=== PATIENT | female | born 1945 | race Native Hawaiian/Other Pacific Islander ===

== ENCOUNTER 2016-09-14 16:31 | Inpatient (IN) | payer MEDICARE ==
--- NOTE | 2016-09-14 17:09 | C.PDOC ---
History Of Present Illness <Javier Arredondo - Last Filed: 09/14/16 18:50> <Jarred Dumont - Last Filed: 09/14/16 19:51> 71 y/o female with past medical history of hypertension presents to emergency department with complaint of syncopal episode. Patient states she fell backwards while cooking on Monday (3 days ago). Patient saw her PMD who sent her to ER for evaluation. Also reports left sided rib pain, sustained after fall , and henry to her right hand. Denies headache or other complaints. (Javier Arredondo) History Per: Patient History/Exam Limitations: no limitations Onset/Duration Of Symptoms: Days Current Symptoms Are (Timing): Still Present Fall Associated With With Symptoms: Yes Recent travel outside of the [place]: No <Javier Arredondo - Last Filed: 09/14/16 18:50> <Jarred Dumont - Last Filed: 09/14/16 19:51> Time Seen by Provider: 09/14/16 16:50 Chief Complaint (Nursing): Syncope Past Medical History Reviewed: Historical Data, Nursing Documentation, Vital Signs - Medical History PMH: HTN Family History: States: Unknown Family Hx - Social History Hx Alcohol Use: No Hx Substance Use: No <Javier Arredondo - Last Filed: 09/14/16 18:50> Review Of Systems Except As Marked, All Systems Reviewed And Found Negative. Constitutional: Negative for: Fever, Chills Cardiovascular: Negative for: Chest Pain, Palpitations Respiratory: Negative for: Cough, Shortness of Breath Gastrointestinal: Negative for: Nausea, Vomiting Musculoskeletal: Positive for: Other (left sided rib pain ) Skin: Positive for: Other (henry to right hand). Negative for: Rash Neurological: Negative for: Headache <Javier Arredondo - Last Filed: 09/14/16 18:50> Physical Exam - Physical Exam Appears: Non-toxic, No Acute Distress Skin: Normal Color, Warm, Dry Head: Atraumatic, Normacephalic Eye(s): bilateral: Normal Inspection Neck: No Midline Cervical Tenderness, No Paracervical Tenderness, No Step Off Deformity, Supple Chest: Symmetrical, Tenderness (left sided lower costal pain) Cardiovascular: Rhythm Regular Respiratory: Normal Breath Sounds, No Rales, No Rhonchi, No Wheezing Gastrointestinal/Abdominal: Soft, No Tenderness Back: Normal Inspection Extremity: Normal ROM, Capillary Refill (< 2 sec. ), Other (1st degree henry to right hand) Neurological/Psych: Oriented x3, Normal Speech, Normal Cognition <Javier Arredondo - Last Filed: 09/14/16 18:50> ED Course And Treatment - Laboratory Results Result Diagrams: 09/14/16 17:26 09/14/16 17:26 O2 Sat by Pulse Oximetry: 94 (RA) Pulse Ox Interpretation: Normal Progress Note: CT Head, CT chest, right hand x-rays, EKG, CxR, labs ordered and reviewed. <Javier Arredondo - Last Filed: 09/14/16 18:50> - Laboratory Results Result Diagrams: 09/14/16 17:26 09/14/16 17:26 ECG: Interpreted By Me, Viewed By Me ECG Rhythm: Sinus Rhythm ECG Interpretation: Normal, No Acute Changes Interpretation Of ECG: NSR,normal tracings Rate From EC Reassessment Condition: Unchanged <Jarred Dumont R - Last Filed: 09/14/16 19:51> Medical Decision Making <Javier Arredondo - Last Filed: 09/14/16 18:50> <Jarred Dumont - Last Filed: 09/14/16 19:51> Medical Decision Making: syncope r/o cardiac intracranial vs seizure etiology, also r/o left rib fx. - labs imaging pending- ekg nsr [address] t wave changes. 609: inital cxr shows possible atelectasis vs effusion, changed ct to IV contrast to r/o hemothorax/rib fx. FAST neg. pt empircally covered for pna 700: endorsed to date night sitter, pending results of imaging, final dispo (Javier Arredondo) Disposition <Javier Arredondo - Last Filed: 09/14/16 18:50> Discussed With : Yahaira Crowell Doctor Will See Patient In The: Hospital Counseled Patient/Family Regarding: Diagnosis - Disposition Disposition Time: 19:43 - POA Present On Arrival: None <Jarred Dumont R - Last Filed: 09/14/16 19:51> - Disposition Disposition: HOSPITALIZED Condition: STABLE - Clinical Impression Clinical Impression: Syncope, Chest injury, Hemothorax, Pneumothorax, Endometrial ca - Scribe Statement The provider has reviewed the documentation as recorded by the Scribe <Javier Arredondo - Last Filed: 09/14/16 18:50> <Jarred Dumont - Last Filed: 09/14/16 19:51> - Scribe Statement Simon Prater All medical record entries made by the Scribe were at my direction and personally dictated by me. I have reviewed the chart and agree that the record accurately reflects my personal performance of the history, physical exam, medical decision making, and the department course for this patient. I have also personally directed, reviewed, and agree with the discharge instructions and disposition. (Javier Arredondo)
--- NOTE | 2016-09-14 17:27 | RAD ---
PROCEDURE: CHEST RADIOGRAPH, 1 VIEW HISTORY: chest pain COMPARISON: No prior study available for comparison FINDINGS: LUNGS: Patchy opacity left lung base may represent some combination of atelectasis and/or infiltrate. Minor right basilar atelectasis. PLEURA: No pneumothorax or pleural fluid seen. CARDIOVASCULAR: Heart size appears to be within range of normal. OSSEOUS STRUCTURES: Mild dextroscoliosis of thoracic mid thoracic spine. VISUALIZED UPPER ABDOMEN: Normal. OTHER FINDINGS: None. IMPRESSION: Left lower lobe atelectasis and or infiltrate Minor right basilar atelectasis.
[2016-09-14 17:32] LABS: BASO # 0.1 K/uL (0.0-0.2); BASO % 0.8 % (0.0-2.0); EOS % 0.3 % (0.0-4.0); HEMATOCRIT 36.9 % (34.0-47.0); LYMPH # 2.4 K/uL (1.0-4.3); MEAN CELL VOLUME 80.8 fL (81.0-99.0); MEAN CORPUSCULAR HEMOGLOBIN 25.4 pg (27.0-31.0); MEAN CORPUSCULAR HGB CONC 31.5 g/dL (33.0-37.0); MEAN PLATELET VOLUME 8.1 fL (7.2-11.7); MONO # 1.4 K/uL (0.0-0.8); MONO % 9.9 % (0.0-10.0); RED CELL DISTRIBUTION WIDTH 16.6 % (11.5-14.5); WHITE BLOOD COUNT 14.2 K/uL (4.8-10.8)
[2016-09-14 17:53] LABS: CHLORIDE 100 mmol/L (98-107)
[2016-09-14 17:54] LABS: POTASSIUM 3.8 mmol/L (3.6-5.2); SODIUM 136 mmol/L (132-148)
[2016-09-14 17:56] LABS: ALB/GLOB RATIO 1.1 (1.0-2.1); AST/SGOT 17 U/L (14-36); BILIRUBIN,TOTAL 0.7 mg/dL (0.2-1.3); CARBON DIOXIDE 26 mmol/L (22-30); GFR AFRICAN-AMERICAN > 60; TOTAL PROTEIN 7.3 g/dL (6.3-8.3)
[2016-09-14 17:57] LABS: ALKALINE PHOSPHATASE 74 U/L (38-126); ALT/SGPT 19 U/L (9-52); BLOOD UREA NITROGEN 19 mg/dL (7-17); CALCIUM 8.5 mg/dl (8.6-10.4); GLUCOSE,RANDOM 115 mg/dL (65-105)
[2016-09-14] MEDS ORDERED: Iohexol 300 100 ML IJ ONE (18:08)
--- NOTE | 2016-09-14 18:15 | RAD ---
PROCEDURE: Right Hand Radiographs. HISTORY: trauma COMPARISON: None available. FINDINGS: BONES: No acute displaced fracture. JOINTS: No dislocation. SOFT TISSUES: Unremarkable. No evidence of radiopaque foreign body. OTHER FINDINGS: None. IMPRESSION: No acute displaced fracture, dislocation, or significant joint effusion identified. If symptoms persist, or if there is continued clinical concern, x-ray follow-up in 7-10 days should be considered.
[2016-09-14 18:20] LABS: INR 1.2
[2016-09-14] MEDS ORDERED: Moxifloxacin IV 400mg/250ml NS 400 MG/250 ML BAG IVPB ONE ×2 (18:41→19:22)
[2016-09-14 19:18] LABS: RBC URINE 6 /hpf (0-3); URINE BACTERIA RARE (<OCC); URINE BILIRUBIN NEGATIVE (NEGATIVE); URINE BLOOD NEGATIVE (NEGATIVE); URINE COLOR Yellow (YELLOW); URINE GLUCOSE (UA) NORMAL (Normal); URINE KETONE NEGATIVE (NEGATIVE); URINE LEUKOCYTE ESTERASE 2+ Leu/uL (Negative); URINE PROTEIN NEGATIVE (NEGATIVE); URINE UROBILINOGEN NORMAL mg/dL (0.2-1.0); WBC URINE 10 /hpf (0-5)
--- NOTE | 2016-09-14 19:28 | CT ---
EXAM: CT Chest With Intravenous Contrast CLINICAL HISTORY: 71 years old, female; Pain and injury or trauma; Fall; Initial encounter; Abrasion; Abdominal pain; Epigastric; Chest wall pain; Additional info: Trauma, left sided rib pain TECHNIQUE: Axial computed tomography images of the chest with intravenous contrast. This CT exam was performed using one or more of the following dose reduction techniques: automated exposure control, adjustment of the mA and/or kV according to patient size, and/or use of iterative reconstruction technique. Coronal and sagittal reformatted images were created and reviewed. CONTRAST: 100 mL of omnipaque 300 administered intravenously. COMPARISON: There are no prior studies for comparison. FINDINGS: Artifacts: Motion artifact degrades image quality. Lungs and pleural spaces: Trachea and main bronchi are patent. There a small left pneumothorax with air in the pleural space at the left base. There is a small left pleural effusion. CT number is 35 Hounsfield units There is left lower lobe airspace disease. There is minimal airspace disease in the lingula. There is subsegmental atelectasis/scarring in the left upper lobe. There is no focal infiltrate is seen in the right upper lobe. There is atelectasis and scarring in the right middle lobe. There is subsegmental atelectasis and patchy airspace disease at the right base. There is scarring at the right base. Heart and Vasculature: Heart size is normal. There are coronary calcifications.There is no aneurysm or dissection.There are vascular calcifications.Pulmonary vessels are unremarkable Mediastinum: There is a moderately large hiatal hernia.There is no pneumomediastinum. The esophagus is unremarkable. There are no pathologically enlarged mediastinal or hilar nodes. Thyroid: There is a left thyroid nodule. Bones/joints: There are nondisplaced fractures of the anterior left third, fourth, fifth and sixth ribs. There is a nondisplaced fracture of the lateral left sixth and seventh ribs. There are displaced fractures lateral aspects of these left sixth, seventh, eighth, ninth and 10th ribs. There are posterior left eighth and ninth rib fractures. No definite fractures are seen on right. There are degenerative changes in the spine. Soft tissues: There is bruising in the left chest wall . Upper abdomen: Refer to abdominal report for abdominal findings IMPRESSION: Multiple left rib fractures with left hemopneumothorax; atelectasis/infiltrate at the left base; scarring at the right base; bruising in the left chest wall; moderately large hiatal hernia Findings were discussed with Dr. Dumont at 7:23 PM EDT on 09/14/2016. EXAM: CT Abdomen and Pelvis With Intravenous Contrast CLINICAL HISTORY: 71 years old, female; Pain and injury or trauma; Fall; Initial encounter; Abrasion; Abdominal pain; Epigastric; Chest wall pain; Additional info: Trauma, left sided rib pain TECHNIQUE: Axial computed tomography images of the abdomen and pelvis with intravenous contrast. This CT exam was performed using one or more of the following dose reduction techniques: automated exposure control, adjustment of the mA and/or kV according to patient size, and/or use of iterative reconstruction technique. Coronal and sagittal reformatted images were created and reviewed. CONTRAST: 100 mL of omnipaque 300 administered intravenously. EXAM DATE/TIME: 09/14/2016 6:01 PM COMPARISON: There are no prior studies for comparison. FINDINGS: Lower thorax: Refer to prior report for chest findings ABDOMEN: Liver: There is fatty infiltration of the liver. Gallbladder and bile ducts: Gallbladder is distended. Bile duct is unremarkable. Pancreas: Pancreas is mildly atrophic. Spleen: Spleen is unremarkable. Adrenals: unremarkable Kidneys and ureters: unremarkable Stomach and bowel: There is a moderately large ventral hernia. Stomach is incompletely distended. Rotation is normal. There is mild distention of the small bowel. There is no small bowel obstruction. Terminal ileum is unremarkable. Appendix is unremarkable. Streak and motion limit evaluation of the colon. There is moderate stool in the colon. There is scattered diverticulosis. There may be a small polypoid lesion in the sigmoid, image 40 series 604, images 102-107, series 6 There is a fecal bolus in the rectum. Appendix: See stomach and bowel PELVIS: Bladder: Bladder is partially distended. Reproductive: Uterus is prominent for the patient's age. There is endometrial thickening and enhancement. There is prominence of the adnexa. There is a 2.5 cm left adnexal cyst. ABDOMEN and PELVIS: Intraperitoneal space: There is no free air or free fluid. Bones/joints: Bony structures are osteopenic. There are no pelvic fractures.There are degenerative changes in the osseus structures. There are lower left rib fractures as described above. Soft tissues: unremarkable Vasculature: There are vascular calcifications. Lymph nodes: There is no pathologic adenopathy. IMPRESSION: No acute solid visceral or bowel injury; thickened endometrium with enhancement suspicious for malignancy; mildly prominent left adnexa; possible sigmoid colonpolyp; constipation and fecal impaction Additional findings as described above. Findings were discussed with Dr. Dumont at 7:27 PM EDT on 09/14/2016.
--- NOTE | 2016-09-14 19:30 | CT ---
EXAM: CT Head Without and With Intravenous Contrast CLINICAL HISTORY: 71 years old, female; Injury or trauma and signs and symptoms; Fall; Initial encounter; Abrasion; Forehead; Syncope and collapse and walking, difficulty TECHNIQUE: Axial computed tomography images of the head/brain without and with intravenous contrast. This CT exam was performed using one or more of the following dose reduction techniques: automated exposure control, adjustment of the mA and/or kV according to patient size, and/or use of iterative reconstruction technique. CONTRAST: 0 mL of omnipaque 300 administered intravenously. EXAM DATE/TIME: 09/14/2016 5:03 PM COMPARISON: There are no prior studies for comparison. FINDINGS: Brain: There is dilatation of sulci gyri and ventricles. There is no midline shift. There is decreased attenuation in periventricular white matter. There is encephalomalacia in both temporal lobes right greater than left. There are no focal masses. There are no focal hemorrhages. [place]-white differentiation is visualized. Ventricles: See above Bones: Cranial vault is intact. Soft tissues: unremarkable Sinuses: There is no acute sinusitis. Ears and mastoids: Middle ears and mastoids are unremarkable. There is debris in both external auditory canals. Orbits: Orbital contents are unremarkable. IMPRESSION: Atrophy and small vessel disease; bilateral temporal lobe encephalomalacia, new bleed
[2016-09-15] MEDS: Piperacill/Tazo 3.375gm in Dex 3.375 GM/50 ML BAG IVPB SCH (02:00)
[2016-09-15] MEDS ORDERED: Morphine 4 MG/ML VIAL ONE (10:09)
[2016-09-15] MEDS ORDERED: Morphine 4 MG/ML VIAL IV PRN ×2 (19:37→19:45)
--- NOTE | 2016-09-15 20:38 | CP.PCM.CON ---
History of Present Illness - History of Present Illness History of Present Illness: Pt is a 71 yo f ho Htn who presented secondary to syncope that resulting in multiple henry on hands and rib fractures. Pt reports 8-10/10, left sided pain that radiates to the back. Pain is aggraveted by movement and minimal responsive to current treatment. No associated symptoms. CT chest showed both nondisplaced and displaced rib fractures from rib 3-10. Pt denies any n/v/cp/sob. Recommendation: 1. Dilaudid SCRAP YARD WORKER to control pain + antiemetic for possible n/v 2. Acetaminophen 650mg PO q6H for inflammation 3. Consider thoracic epidural or paravertebral block for pain control if not alleviated with SCRAP YARD WORKER 4. Consider lidocaine patch for adjunct analgesia is patient is not a candidate for epidural or block Will continue to follow. Thank you for your consult. Past Patient History - Past Social History Smoking Status: Never Smoked - CARDIAC Hx Hypertension: Yes - PULMONARY Hx Respiratory Disorders: No - NEUROLOGICAL Hx Neurological Disorder: No - HEENT Hx HEENT Problems: No - RENAL Hx Chronic Kidney Disease: No - ENDOCRINE/METABOLIC Hx Endocrine Disorders: No - HEMATOLOGICAL/ONCOLOGICAL Hx Blood Disorders: No - MUSCULOSKELETAL/RHEUMATOLOGICAL Hx Musculoskeletal Disorders: No Hx Falls: No - GASTROINTESTINAL Hx Gastrointestinal Disorders: No - GENITOURINARY/GYNECOLOGICAL Hx Genitourinary Disorders: No - PSYCHIATRIC Hx Substance Use: No - SURGICAL HISTORY Hx Surgeries: No - ANESTHESIA Hx Anesthesia: No Hx Anesthesia Reactions: No Hx Malignant Hyperthermia: No Has any member of the family had a problem w/ anesthesia?: No Meds Allergies/Adverse Reactions: Allergies Allergy/AdvReac Type Severity Reaction Status Date / Time No Known Allergies Allergy Verified 09/14/16 18:38 - Medications Medications: Current Medications Amlodipine Besylate (Norvasc) 10 mg PO DAILY [facility] Piperacillin Sod/Tazobactam Sod (Zosyn 3.375 Gm Iv Premix) 3.375 gm in 50 mls @ 100 mls/hr IVPB Q8H [facility] Levetiracetam (Keppra) 500 mg PO BID [facility] Morphine Sulfate (Morphine) 4 mg IV Q4H PRN PRN Reason: Pain, moderate (4-7) Morphine Sulfate (Morphine) 4 mg IV Q4H PRN PRN Reason: Pain, severe (8-10) Pantoprazole Sodium (Protonix Ec Tab) 40 mg PO DAILY [facility] Rosuvastatin Calcium (Crestor) 10 mg PO HS [facility] Silver Sulfadiazine (Silvadene 1% 20 Gm) 1 ea TOP BID [facility] Results - Vital Signs Recent Vital Signs: Last Vital Signs Temp 99.0 F 09/15/16 15:42 Pulse 89 09/15/16 15:42 Resp 20 09/15/16 15:42 BP 104/63 09/15/16 15:42 Pulse Ox 97 09/15/16 15:42 - Labs Result Diagrams: 09/14/16 17:26 09/14/16 17:26
--- NOTE | 2016-09-15 22:33 | CP.PCM.HP ---
History of Present Illness - History of Present Illness History of Present Illness: 71-year-old female patient with a past medical history of hypertension who presented to the ED with complaint of syncopal episode. Patient states she fell backward while cooking on Monday(3 days ago). Patient saw her PMD who sent her to ER for evaluation. Patient also reports left-sided hip pain, sustained after a fall, and wants to the right hand. Denies headache or any other complaints. Present on Admission - Present on Admission Any Indicators Present on Admission: No Past Patient History - Past Social History Smoking Status: Never Smoked - CARDIAC Hx Hypertension: Yes - PULMONARY Hx Respiratory Disorders: No - NEUROLOGICAL Hx Neurological Disorder: No - HEENT Hx HEENT Problems: No - RENAL Hx Chronic Kidney Disease: No - ENDOCRINE/METABOLIC Hx Endocrine Disorders: No - HEMATOLOGICAL/ONCOLOGICAL Hx Blood Disorders: No - MUSCULOSKELETAL/RHEUMATOLOGICAL Hx Musculoskeletal Disorders: No Hx Falls: No - GASTROINTESTINAL Hx Gastrointestinal Disorders: No - GENITOURINARY/GYNECOLOGICAL Hx Genitourinary Disorders: No - PSYCHIATRIC Hx Substance Use: No - SURGICAL HISTORY Hx Surgeries: No - ANESTHESIA Hx Anesthesia: No Hx Anesthesia Reactions: No Hx Malignant Hyperthermia: No Has any member of the family had a problem w/ anesthesia?: No Meds Home Medications: Home Medication List Medication Instructions Recorded Confirmed Type Acetaminophen [Tylenol 325mg tab] 650 mg PO Q6 tab 09/19/16 Rx Cephalexin [Keflex] 250 mg PO QID 7 Days 09/19/16 Rx Gabapentin [Neurontin] 100 mg PO BID #30 cap 09/19/16 Rx Rosuvastatin Calcium [Crestor] 10 mg PO HS #30 tab 09/19/16 Rx Silver Sulfadiazine 1% 20 gm 1 ea TOP BID #1 09/19/16 Rx [Silvadene 1% 20 gm] Sulfamethoxazole/Trimethoprim 1 tab PO BID #14 tab 09/19/16 Rx [Bactrim DS 800 mg-160 mg] amLODIPine [Norvasc] 10 mg PO DAILY #30 tab 09/19/16 Rx levETIRAcetam [Keppra] 500 mg PO BID #30 tab 09/19/16 Rx oxyCODONE/Acetaminophen [Percocet 1 tab PO Q4H PRN #12 tab 09/19/16 Rx 5/325 mg Tab] Allergies/Adverse Reactions: Allergies Allergy/AdvReac Type Severity Reaction Status Date / Time No Known Allergies Allergy Verified 09/14/16 18:38 Physical Exam - Constitutional Appears: Well - Head Exam Head Exam: ATRAUMATIC, NORMAL INSPECTION, NORMOCEPHALIC - Eye Exam Eye Exam: EOMI, Normal appearance, PERRL Pupil Exam: NORMAL ACCOMODATION, PERRL - ENT Exam ENT Exam: Mucous Membranes Moist, Normal Exam - Neck Exam Neck exam: Positive for: Normal Inspection - Respiratory Exam Respiratory Exam: Decreased Breath Sounds - Cardiovascular Exam Cardiovascular Exam: REGULAR RHYTHM, +S1, +S2 - GI/Abdominal Exam GI & Abdominal Exam: Diminished Bowel Sounds, Soft - Rectal Exam Rectal Exam: Deferred Results - Vital Signs Recent Vital Signs: Last Vital Signs Temp 99.0 F 09/15/16 15:42 Pulse 89 09/15/16 15:42 Resp 20 09/15/16 15:42 BP 104/63 09/15/16 15:42 Pulse Ox 97 09/15/16 15:42 - Labs Result Diagrams: 09/16/16 07:05 09/16/16 07:05 Assessment & Plan (1) Chest injury Status: Acute (2) Endometrial ca Status: Acute (3) Hemothorax Status: Acute (4) Pneumothorax Status: Acute (5) Syncope Status: Acute - Assessment and Plan (Free Text) Plan: Consult neurology Consult pulmonology Consult orthopedic Consult MANAGER PROGRAM MANAGEMENT ECG normal Tylenol Norvasc Heparin Dilaudid Keppra Protonix
[2016-09-16] MEDS: Piperacill/Tazo 3.375gm in Dex 3.375 GM/50 ML BAG IVPB SCH ×3 (02:03→18:40)
[2016-09-16 07:29] LABS: BASO # 0.1 K/uL (0.0-0.2); BASO % 1.2 % (0.0-2.0); EOS # 0.3 K/uL (0.0-0.7); EOS % 2.5 % (0.0-4.0); HEMATOCRIT 33.9 % (34.0-47.0); LYMPH # 3.3 K/uL (1.0-4.3); LYMPH % 27.1 % (20.0-40.0); MEAN CELL VOLUME 80.3 fL (81.0-99.0); MEAN CORPUSCULAR HGB CONC 32.4 g/dL (33.0-37.0); MEAN PLATELET VOLUME 8.3 fL (7.2-11.7); MONO # 1.4 K/uL (0.0-0.8); MONO % 11.4 % (0.0-10.0); RED CELL DISTRIBUTION WIDTH 16.4 % (11.5-14.5); WHITE BLOOD COUNT 12.3 K/uL (4.8-10.8)
[2016-09-16 07:57] LABS: CHLORIDE 99 mmol/L (98-107); SODIUM 135 mmol/L (132-148)
[2016-09-16 07:58] LABS: POTASSIUM 3.7 mmol/L (3.6-5.2)
[2016-09-16 08:00] LABS: ALKALINE PHOSPHATASE 63 U/L (38-126); ALT/SGPT 15 U/L (9-52); AST/SGOT 15 U/L (14-36); BILIRUBIN,TOTAL 0.8 mg/dL (0.2-1.3); BLOOD UREA NITROGEN 10 mg/dL (7-17); CARBON DIOXIDE 28 mmol/L (22-30); GFR AFRICAN-AMERICAN > 60; GLUCOSE,RANDOM 97 mg/dL (65-105); TOTAL PROTEIN 6.5 g/dL (6.3-8.3)
[2016-09-16 08:01] LABS: CALCIUM 8.1 mg/dl (8.6-10.4)
[2016-09-16] MEDS: Pantoprazole 40 mg EC Tab PO SCH (09:19)
--- NOTE | 2016-09-16 09:42 | RAD ---
HISTORY: multiple rib fractures, hemopneumothorax compare COMPARISON: 09/14/2016 FINDINGS: LUNGS: No definite consolidation. PLEURA: Left pleural effusion with hazy opacity throughout the left hemithorax likely due to dependent pleural fluid. Alternatively, this could represent diffuse pulmonary infiltrate. No right-sided pleural effusion. No pneumothorax. CARDIOVASCULAR: Normal. OSSEOUS STRUCTURES: No significant abnormalities. VISUALIZED UPPER ABDOMEN: Normal. OTHER FINDINGS: None. IMPRESSION: Left pleural effusion. Cannot rule out diffuse left-sided pulmonary infiltrate. Followup advised.
--- NOTE | 2016-09-16 10:57 | CP.PCM.PN ---
Subjective - Date & Time of Evaluation Date of Evaluation: 09/16/16 Time of Evaluation: 11:03 - Subjective Subjective: Surgery: Dr. Haque Pt seen and examined. Has complaints of L side chest pain. No SOB. Also has pain at fingers where henry occurred. Objective - Vital Signs/Intake and Output Vital Signs (last 24 hours): Temp Pulse Resp BP Pulse Ox 98.1 F 66 18 99/56 L 97 09/16/16 07:20 09/16/16 07:20 09/16/16 07:20 09/16/16 07:20 09/16/16 07:20 - Medications Medications: Current Medications Acetaminophen (Tylenol 325mg Tab) 650 mg PO Q6 [facility] Stop: 09/17/16 00:01 Last Admin: 09/16/16 06:10 Dose: 650 mg Amlodipine Besylate (Norvasc) 10 mg PO DAILY [facility] Last Admin: 09/16/16 09:19 Dose: 10 mg Heparin Sodium (Porcine) (Heparin) 5,000 units SC Q12 [facility] Hydromorphone/Sodium Chloride (Dilaudid Guitar Repair Technician) 6 mg IV Q4H PRN; Protocol PRN Reason: Pain, see mash preparatory operator protocol Last Admin: 09/15/16 23:16 Dose: 6 mg Piperacillin Sod/Tazobactam Sod (Zosyn 3.375 Gm Iv Premix) 3.375 gm in 50 mls @ 100 mls/hr IVPB Q8H [facility] Last Admin: 09/16/16 09:18 Dose: 100 mls/hr Levetiracetam (Keppra) 500 mg PO BID [facility] Last Admin: 09/16/16 09:19 Dose: 500 mg Pantoprazole Sodium (Protonix Ec Tab) 40 mg PO DAILY [facility] Last Admin: 09/16/16 09:19 Dose: 40 mg Rosuvastatin Calcium (Crestor) 10 mg PO HS [facility] Last Admin: 09/15/16 22:19 Dose: 10 mg Silver Sulfadiazine (Silvadene 1% 20 Gm) 1 ea TOP BID [facility] - Labs Labs: 09/16/16 07:05 09/16/16 07:05 PT 13.9 SECONDS (9.7-12.2) H 09/14/16 17:26 INR 1.2 09/14/16 17:26 APTT 27 SECONDS (21-34) 09/14/16 17:26 - Constitutional Appears: Non-toxic, No Acute Distress - Head Exam Head Exam: ATRAUMATIC, NORMOCEPHALIC - Eye Exam Eye Exam: EOMI - ENT Exam ENT Exam: Mucous Membranes Moist - Neck Exam Neck Exam: Full ROM - Respiratory Exam Respiratory Exam: NORMAL BREATHING PATTERN. absent: Accessory Muscle Use, Respiratory Distress - GI/Abdominal Exam GI & Abdominal Exam: Soft. absent: Tenderness - Extremities Exam Extremities Exam: absent: Calf Tenderness, Pedal Edema Additional comments: first and second degree henry to b/l hands and fingers - Neurological Exam Neurological Exam: Alert, Awake, Oriented x3 Assessment and Plan - Assessment and Plan (Free Text) Assessment: 71F w. multiple L side rib Fxs and 1st/2nd degree burn B/L hands -Pain control w. PLANT EQUIPMENT ENGINEER -encourage IS use -AM CXR: possible infiltrate L lung -Repeat CXR tomrrow -Recommend hand surgery consult for henry to hand -d/w attending Saadmaitis PGY2
[2016-09-16] MEDS: Silver Sulfadiazine 1% Cream (20 gm) TOP SCH ×2 (12:39→17:52)
--- NOTE | 2016-09-16 13:48 | CP.PCM.CON ---
History of Present Illness - History of Present Illness History of Present Illness: Reason for consultation: Fall, rib fxs,left, hemopneumothorax, Requested by Pt s/e. progress notes, and imaging studies reviewed. Mutiple ribs fx left, small pneumothorax, bailar hemothorax and atelectasis. Recom: Pain rx, incentive spirometer, and Pt. d/w residents on rounds. Past Patient History - Past Social History Smoking Status: Never Smoked - CARDIAC Hx Hypertension: Yes - PULMONARY Hx Respiratory Disorders: No - NEUROLOGICAL Hx Neurological Disorder: No - HEENT Hx HEENT Problems: No - RENAL Hx Chronic Kidney Disease: No - ENDOCRINE/METABOLIC Hx Endocrine Disorders: No - HEMATOLOGICAL/ONCOLOGICAL Hx Blood Disorders: No - MUSCULOSKELETAL/RHEUMATOLOGICAL Hx Musculoskeletal Disorders: No Hx Falls: No - GASTROINTESTINAL Hx Gastrointestinal Disorders: No - GENITOURINARY/GYNECOLOGICAL Hx Genitourinary Disorders: No - PSYCHIATRIC Hx Substance Use: No - SURGICAL HISTORY Hx Surgeries: No - ANESTHESIA Hx Anesthesia: No Hx Anesthesia Reactions: No Hx Malignant Hyperthermia: No Has any member of the family had a problem w/ anesthesia?: No Meds Allergies/Adverse Reactions: Allergies Allergy/AdvReac Type Severity Reaction Status Date / Time No Known Allergies Allergy Verified 09/14/16 18:38 - Medications Medications: Current Medications Acetaminophen (Tylenol 325mg Tab) 650 mg PO Q6 [facility] Stop: 09/17/16 00:01 Last Admin: 09/16/16 12:38 Dose: 650 mg Amlodipine Besylate (Norvasc) 10 mg PO DAILY [facility] Last Admin: 09/16/16 09:19 Dose: 10 mg Heparin Sodium (Porcine) (Heparin) 5,000 units SC Q12 [facility] Hydromorphone/Sodium Chloride (Dilaudid Gunite Mixer) 6 mg IV Q4H PRN; Protocol PRN Reason: Pain, see etcher machine protocol Last Admin: 09/15/16 23:16 Dose: 6 mg Piperacillin Sod/Tazobactam Sod (Zosyn 3.375 Gm Iv Premix) 3.375 gm in 50 mls @ 100 mls/hr IVPB Q8H [facility] Last Admin: 09/16/16 09:18 Dose: 100 mls/hr Levetiracetam (Keppra) 500 mg PO BID [facility] Last Admin: 09/16/16 09:19 Dose: 500 mg Pantoprazole Sodium (Protonix Ec Tab) 40 mg PO DAILY [facility] Last Admin: 09/16/16 09:19 Dose: 40 mg Rosuvastatin Calcium (Crestor) 10 mg PO HS [facility] Last Admin: 09/15/16 22:19 Dose: 10 mg Silver Sulfadiazine (Silvadene 1% 20 Gm) 1 ea TOP BID [facility] Last Admin: 09/16/16 12:39 Dose: Not Given Results - Vital Signs Recent Vital Signs: Last Vital Signs Temp 98.1 F 09/16/16 07:20 Pulse 66 09/16/16 07:20 Resp 18 09/16/16 07:20 BP 99/56 L 09/16/16 07:20 Pulse Ox 97 09/16/16 07:20 - Labs Result Diagrams: 09/16/16 07:05 09/16/16 07:05 Labs: Laboratory Results - last 24 hr 09/16/16 09/16/16 07:05 07:05 WBC 12.3 H RBC 4.22 Hgb 11.0 Hct 33.9 L MCV 80.3 L MCH 26.0 L MCHC 32.4 L RDW 16.4 H Plt Count 406 H MPV 8.3 Neut % (Auto) 57.8 Lymph % (Auto) 27.1 Kinney % (Auto) 11.4 H Eos % (Auto) 2.5 Baso % (Auto) 1.2 Neut # 7.1 H Lymph # 3.3 Kinney # 1.4 H Eos # 0.3 Baso # 0.1 Sodium 135 Potassium 3.7 Chloride 99 Carbon Dioxide 28 Anion Gap 13 BUN 10 Creatinine 0.6 L Est GFR ( Amer) > 60 Est GFR (Non-Af Amer) > 60 Random Glucose 97 Calcium 8.1 L Total Bilirubin 0.8 AST 15 ALT 15 Alkaline Phosphatase 63 Total Protein 6.5 Albumin 3.2 L Globulin 3.3 Albumin/Globulin Ratio 1.0
--- NOTE | 2016-09-16 14:14 | CP.PCM.PN ---
Subjective - Date & Time of Evaluation Date of Evaluation: 09/16/16 Time of Evaluation: 13:15 - Subjective Subjective: Case discussed with Dr. Steward and nursing staff. 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 There are no surgical interventions indicated at this time, although she is waiting to be seen by hand surgery. Objective - Vital Signs/Intake and Output Vital Signs (last 24 hours): Temp Pulse Resp BP Pulse Ox 98.1 F 66 18 99/56 L 97 09/16/16 07:20 09/16/16 07:20 09/16/16 07:20 09/16/16 07:20 09/16/16 07:20 - Medications Medications: Current Medications Acetaminophen (Tylenol 325mg Tab) 650 mg PO Q6 [facility] Stop: 09/17/16 00:01 Last Admin: 09/16/16 12:38 Dose: 650 mg Amlodipine Besylate (Norvasc) 10 mg PO DAILY [facility] Last Admin: 09/16/16 09:19 Dose: 10 mg Heparin Sodium (Porcine) (Heparin) 5,000 units SC Q12 [facility] Hydromorphone/Sodium Chloride (Dilaudid Perfect Binder Setter) 6 mg IV Q4H PRN; Protocol PRN Reason: Pain, see senior java engineer protocol Last Admin: 09/15/16 23:16 Dose: 6 mg Piperacillin Sod/Tazobactam Sod (Zosyn 3.375 Gm Iv Premix) 3.375 gm in 50 mls @ 100 mls/hr IVPB Q8H [facility] Last Admin: 09/16/16 09:18 Dose: 100 mls/hr Levetiracetam (Keppra) 500 mg PO BID [facility] Last Admin: 09/16/16 09:19 Dose: 500 mg Pantoprazole Sodium (Protonix Ec Tab) 40 mg PO DAILY [facility] Last Admin: 09/16/16 09:19 Dose: 40 mg Rosuvastatin Calcium (Crestor) 10 mg PO HS [facility] Last Admin: 09/15/16 22:19 Dose: 10 mg Silver Sulfadiazine (Silvadene 1% 20 Gm) 1 ea TOP BID [facility] Last Admin: 09/16/16 12:39 Dose: Not Given - Labs Labs: 09/16/16 07:05 09/16/16 07:05 PT 13.9 SECONDS (9.7-12.2) H 09/14/16 17:26 INR 1.2 09/14/16 17:26 APTT 27 SECONDS (21-34) 09/14/16 17:26 Assessment and Plan (1) Chest injury Assessment & Plan: 71 yo w/ multiple rib fractures s/p fall. 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
--- NOTE | 2016-09-16 15:20 | CP.PCM.PN ---
Subjective - Date & Time of Evaluation Date of Evaluation: 09/16/16 Time of Evaluation: 13:45 - Subjective Subjective: Patient seen and examined On PORTER MARINA pump with much less pain Denies cough, denies fever chills Denies shortness of breath Afebrile Objective - Vital Signs/Intake and Output Vital Signs (last 24 hours): Temp Pulse Resp BP Pulse Ox 98.1 F 66 18 99/56 L 97 09/16/16 07:20 09/16/16 07:20 09/16/16 07:20 09/16/16 07:20 09/16/16 07:20 - Medications Medications: Current Medications Acetaminophen (Tylenol 325mg Tab) 650 mg PO Q6 [facility] Stop: 09/17/16 00:01 Last Admin: 09/16/16 12:38 Dose: 650 mg Amlodipine Besylate (Norvasc) 10 mg PO DAILY [facility] Last Admin: 09/16/16 09:19 Dose: 10 mg Gabapentin (Neurontin) 100 mg PO BID [facility] Heparin Sodium (Porcine) (Heparin) 5,000 units SC Q12 [facility] Piperacillin Sod/Tazobactam Sod (Zosyn 3.375 Gm Iv Premix) 3.375 gm in 50 mls @ 100 mls/hr IVPB Q8H [facility] Last Admin: 09/16/16 09:18 Dose: 100 mls/hr Levetiracetam (Keppra) 500 mg PO BID [facility] Last Admin: 09/16/16 09:19 Dose: 500 mg Lidocaine (Lidoderm) 1 ea TD DAILY [facility] Morphine Sulfate (Morphine) 2 mg IVP Q4 PRN PRN Reason: Pain, severe (8-10) Oxycodone/Acetaminophen (Percocet 5/325 Mg Tab) 1 tab PO Q4H PRN PRN Reason: Pain, moderate (4-7) Stop: 09/19/16 14:49 Pantoprazole Sodium (Protonix Ec Tab) 40 mg PO DAILY [facility] Last Admin: 09/16/16 09:19 Dose: 40 mg Rosuvastatin Calcium (Crestor) 10 mg PO HS [facility] Last Admin: 09/15/16 22:19 Dose: 10 mg Silver Sulfadiazine (Silvadene 1% 20 Gm) 1 ea TOP BID [facility] Last Admin: 09/16/16 12:39 Dose: Not Given - Labs Labs: 09/16/16 07:05 09/16/16 07:05 PT 13.9 SECONDS (9.7-12.2) H 09/14/16 17:26 INR 1.2 09/14/16 17:26 APTT 27 SECONDS (21-34) 09/14/16 17:26 - Head Exam Head Exam: ATRAUMATIC, NORMOCEPHALIC - Eye Exam Eye Exam: Normal appearance - ENT Exam ENT Exam: Mucous Membranes Moist - Neck Exam Neck Exam: Normal Inspection - Respiratory Exam Respiratory Exam: Decreased Breath Sounds - Cardiovascular Exam Cardiovascular Exam: REGULAR RHYTHM - GI/Abdominal Exam GI & Abdominal Exam: Soft, Normal Bowel Sounds - Extremities Exam Extremities Exam: Normal Inspection Assessment and Plan (1) Chest injury Assessment & Plan: Status post fall with multiple rib fractures and small hydropneumothorax on the left side Continue present medications Follow up ABG and chest x-ray Status: Acute (2) Pneumothorax Status: Acute
[2016-09-16 16:41] LABS: ABG ALLEN TEST POS; ARTERIAL BLOOD HGB O2 SAT 95.6 % (95.0-98.0); CARBOXYHEMOGLOBIN 1.3 % (0.5-1.5); DRAW SITE RRADIAL; HHB 1.9 % (0.0-5.0); METHEMOGLOBIN 1.2 % (0.0-3.0)
--- NOTE | 2016-09-16 16:47 | US ---
PROCEDURE: HISTORY: Thickened endometrium COMPARISON: TECHNIQUE: FINDINGS: The uterus measures 5.8 x 3.0 x 4.1 centimeters. The endometrium measures 7 millimeters with questionable internal echogenic focus within the endometrial canal with fluid present. The right ovary measures 1.6 x 0.9 centimeters. The left ovary measures 3.6 x 2.9 centimeters and contains a 2.9 centimeter simple cyst. IMPRESSION: Question endometrial canal polyp. Recommend correlation with hysterosonography. 2.9 centimeter left ovarian cyst.
--- NOTE | 2016-09-16 18:06 | CP.PCM.PN ---
Subjective - Date & Time of Evaluation Date of Evaluation: 09/16/16 Time of Evaluation: 12:40 - Subjective Subjective: clinically same Objective - Vital Signs/Intake and Output Vital Signs (last 24 hours): Temp Pulse Resp BP Pulse Ox 97.4 F L 95 H 20 134/69 100 09/16/16 15:45 09/16/16 15:45 09/16/16 15:45 09/16/16 15:45 09/16/16 15:45 - Medications Medications: Current Medications Acetaminophen (Tylenol 325mg Tab) 650 mg PO Q6 [facility] Stop: 09/17/16 00:01 Last Admin: 09/16/16 17:52 Dose: 650 mg Amlodipine Besylate (Norvasc) 10 mg PO DAILY [facility] Last Admin: 09/16/16 09:19 Dose: 10 mg Gabapentin (Neurontin) 100 mg PO BID [facility] Last Admin: 09/16/16 17:49 Dose: 100 mg Heparin Sodium (Porcine) (Heparin) 5,000 units SC Q12 [facility] Piperacillin Sod/Tazobactam Sod (Zosyn 3.375 Gm Iv Premix) 3.375 gm in 50 mls @ 100 mls/hr IVPB Q8H [facility] Last Admin: 09/16/16 09:18 Dose: 100 mls/hr Levetiracetam (Keppra) 500 mg PO BID [facility] Last Admin: 09/16/16 17:50 Dose: 500 mg Lidocaine (Lidoderm) 1 ea TD DAILY [facility] Morphine Sulfate (Morphine) 2 mg IVP Q4 PRN PRN Reason: Pain, severe (8-10) Oxycodone/Acetaminophen (Percocet 5/325 Mg Tab) 1 tab PO Q4H PRN PRN Reason: Pain, moderate (4-7) Stop: 09/19/16 14:49 Pantoprazole Sodium (Protonix Ec Tab) 40 mg PO DAILY [facility] Last Admin: 09/16/16 09:19 Dose: 40 mg Rosuvastatin Calcium (Crestor) 10 mg PO HS [facility] Last Admin: 09/15/16 22:19 Dose: 10 mg Silver Sulfadiazine (Silvadene 1% 20 Gm) 1 ea TOP BID [facility] Last Admin: 09/16/16 12:39 Dose: Not Given - Labs Labs: 09/16/16 07:05 09/16/16 07:05 PT 13.9 SECONDS (9.7-12.2) H 09/14/16 17:26 INR 1.2 09/14/16 17:26 APTT 27 SECONDS (21-34) 09/14/16 17:26 - Constitutional Appears: Well - Head Exam Head Exam: ATRAUMATIC, NORMAL INSPECTION, NORMOCEPHALIC - Eye Exam Eye Exam: EOMI, Normal appearance, PERRL Pupil Exam: NORMAL ACCOMODATION, PERRL - ENT Exam ENT Exam: Mucous Membranes Moist, Normal Exam - Neck Exam Neck Exam: Full ROM, Normal Inspection. absent: Lymphadenopathy - Respiratory Exam Respiratory Exam: Decreased Breath Sounds - Cardiovascular Exam Cardiovascular Exam: REGULAR RHYTHM, +S1, +S2 - GI/Abdominal Exam GI & Abdominal Exam: Soft, Diminished Bowel Sounds - Rectal Exam Rectal Exam: Deferred Assessment and Plan (1) Chest injury Status: Acute (2) Endometrial ca Status: Acute (3) Hemothorax Status: Acute (4) Pneumothorax Status: Acute (5) Syncope Status: Acute - Assessment and Plan (Free Text) Plan: Consult neurology Consult pulmonology Consult orthopedic Consult HELP AID CT chest shows multiple left rib fracture with left hemopneumothorax; atelectasis/infiltrate at the left base; scabbing at the right base CT abdomen shows thickened endometrium with enhancement suspicious for malignancy ECG normal Tylenol Norvasc Heparin Dilaudid Keppra Protonix
[2016-09-16] MEDS: Oxycodone/Acetaminophen 5/325 mg Tab PO PRN (21:58)
[2016-09-17] MEDS: Piperacill/Tazo 3.375gm in Dex 3.375 GM/50 ML BAG IVPB SCH ×3 (01:42→18:03)
--- NOTE | 2016-09-17 09:42 | RAD ---
HISTORY: comparison COMPARISON: 09/16/2016 FINDINGS: LUNGS: LARGE LOCULATED LEFT PLEURAL EFFUSION WITH ADJACENT CONSOLIDATIVE CHANGES IN THE LEFT MID TO LOWER LUNG ZONE. BIAPICAL PLEURAL THICKENING WITH UPPER LOBE GRANULOMATOUS CHANGES. BILATERAL HILAR PROMINENCE. RIGHT LINEAR ATELECTASIS AT THE RIGHT BASE. PLEURA: As above. CARDIOVASCULAR: Normal. OSSEOUS STRUCTURES: No significant abnormalities. VISUALIZED UPPER ABDOMEN: Normal. OTHER FINDINGS: None. IMPRESSION: LARGE LOCULATED LEFT PLEURAL EFFUSION WITH ADJACENT CONSOLIDATIVE CHANGES IN THE LEFT MID TO LOWER LUNG ZONE. BIAPICAL PLEURAL THICKENING WITH UPPER LOBE GRANULOMATOUS CHANGES. BILATERAL HILAR PROMINENCE. RIGHT LINEAR ATELECTASIS AT THE RIGHT BASE.
[2016-09-17] MEDS: Silver Sulfadiazine 1% Cream (20 gm) TOP SCH ×2 (10:18→18:09)
[2016-09-17] MEDS: Pantoprazole 40 mg EC Tab PO SCH (10:18)
[2016-09-17] MEDS: Lidocaine 5% Patch TD SCH (10:19)
[2016-09-17] MEDS: Oxycodone/Acetaminophen 5/325 mg Tab PO PRN (10:27)
--- NOTE | 2016-09-17 11:07 | CP.PCM.PN ---
Subjective - Date & Time of Evaluation Date of Evaluation: 09/17/16 Time of Evaluation: 08:00 - Subjective Subjective: SURGERY NOTE FOR DR. ABBASI 71F seen and examined at bedside. Patient denies shortness of breath but continue to states he has pain on the left mid-axillary ribs. Objective - Vital Signs/Intake and Output Vital Signs (last 24 hours): Temp Pulse Resp BP Pulse Ox 98.0 F 90 20 124/64 96 09/17/16 08:39 09/17/16 10:50 09/17/16 08:39 09/17/16 08:39 09/17/16 08:39 Intake and Output: 09/17/16 09/17/16 06:59 18:59 Intake Total 150 Balance 150 - Medications Medications: Current Medications Amlodipine Besylate (Norvasc) 10 mg PO DAILY [facility] Last Admin: 09/17/16 10:19 Dose: 10 mg Gabapentin (Neurontin) 100 mg PO BID [facility] Last Admin: 09/17/16 10:18 Dose: 100 mg Heparin Sodium (Porcine) (Heparin) 5,000 units SC Q12 [facility] Last Admin: 09/17/16 10:19 Dose: 5,000 units Piperacillin Sod/Tazobactam Sod (Zosyn 3.375 Gm Iv Premix) 3.375 gm in 50 mls @ 100 mls/hr IVPB Q8H [facility] Last Admin: 09/17/16 10:21 Dose: 100 mls/hr Levetiracetam (Keppra) 500 mg PO BID [facility] Last Admin: 09/17/16 10:18 Dose: 500 mg Lidocaine (Lidoderm) 1 ea TD DAILY [facility] Last Admin: 09/17/16 10:19 Dose: 1 ea Morphine Sulfate (Morphine) 2 mg IVP Q4 PRN PRN Reason: Pain, severe (8-10) Oxycodone/Acetaminophen (Percocet 5/325 Mg Tab) 1 tab PO Q4H PRN PRN Reason: Pain, moderate (4-7) Stop: 09/19/16 14:49 Last Admin: 09/17/16 10:27 Dose: 1 tab Pantoprazole Sodium (Protonix Ec Tab) 40 mg PO DAILY [facility] Last Admin: 09/17/16 10:18 Dose: 40 mg Rosuvastatin Calcium (Crestor) 10 mg PO HS [facility] Last Admin: 09/16/16 21:52 Dose: 10 mg Silver Sulfadiazine (Silvadene 1% 20 Gm) 1 ea TOP BID [facility] Last Admin: 09/17/16 10:18 Dose: 1 applic - Labs Labs: 09/16/16 07:05 09/16/16 07:05 PT 13.9 SECONDS (9.7-12.2) H 09/14/16 17:26 INR 1.2 09/14/16 17:26 APTT 27 SECONDS (21-34) 09/14/16 17:26 - Constitutional Appears: Non-toxic, No Acute Distress - Head Exam Head Exam: ATRAUMATIC - Respiratory Exam Respiratory Exam: Clear to Ausculation Bilateral, NORMAL BREATHING PATTERN - Cardiovascular Exam Cardiovascular Exam: +S1, +S2 - GI/Abdominal Exam GI & Abdominal Exam: Soft. absent: Distended, Firm, Guarding, Rigid, Tenderness , Rebound - Extremities Exam Additional comments: bandages in place on finger digits - Neurological Exam Neurological Exam: Alert, Awake Assessment and Plan - Assessment and Plan (Free Text) Assessment: 71F with hemopneumothorax and left rib fractures Plan: - pain control as per anesthesia - incentive spirometer - repeat chest CT without contrast on Tuesday 09/[address] Shabnam Pacheco, PGY1
--- NOTE | 2016-09-17 12:57 | CP.PCM.PN ---
Subjective - Date & Time of Evaluation Date of Evaluation: 09/17/16 Time of Evaluation: 10:00 - Subjective Subjective: clinically same Objective - Vital Signs/Intake and Output Vital Signs (last 24 hours): Temp Pulse Resp BP Pulse Ox 98.0 F 90 20 124/64 96 09/17/16 08:39 09/17/16 10:50 09/17/16 08:39 09/17/16 08:39 09/17/16 08:39 Intake and Output: 09/17/16 09/17/16 06:59 18:59 Intake Total 150 Balance 150 - Medications Medications: Current Medications Amlodipine Besylate (Norvasc) 10 mg PO DAILY [facility] Last Admin: 09/17/16 10:19 Dose: 10 mg Gabapentin (Neurontin) 100 mg PO BID [facility] Last Admin: 09/17/16 10:18 Dose: 100 mg Heparin Sodium (Porcine) (Heparin) 5,000 units SC Q12 [facility] Last Admin: 09/17/16 10:19 Dose: 5,000 units Piperacillin Sod/Tazobactam Sod (Zosyn 3.375 Gm Iv Premix) 3.375 gm in 50 mls @ 100 mls/hr IVPB Q8H [facility] Last Admin: 09/17/16 10:21 Dose: 100 mls/hr Levetiracetam (Keppra) 500 mg PO BID [facility] Last Admin: 09/17/16 10:18 Dose: 500 mg Lidocaine (Lidoderm) 1 ea TD DAILY [facility] Last Admin: 09/17/16 10:19 Dose: 1 ea Morphine Sulfate (Morphine) 2 mg IVP Q4 PRN PRN Reason: Pain, severe (8-10) Oxycodone/Acetaminophen (Percocet 5/325 Mg Tab) 1 tab PO Q4H PRN PRN Reason: Pain, moderate (4-7) Stop: 09/19/16 14:49 Last Admin: 09/17/16 10:27 Dose: 1 tab Pantoprazole Sodium (Protonix Ec Tab) 40 mg PO DAILY [facility] Last Admin: 09/17/16 10:18 Dose: 40 mg Rosuvastatin Calcium (Crestor) 10 mg PO HS [facility] Last Admin: 09/16/16 21:52 Dose: 10 mg Silver Sulfadiazine (Silvadene 1% 20 Gm) 1 ea TOP BID [facility] Last Admin: 09/17/16 10:18 Dose: 1 applic - Labs Labs: 09/16/16 07:05 09/16/16 07:05 PT 13.9 SECONDS (9.7-12.2) H 09/14/16 17:26 INR 1.2 09/14/16 17:26 APTT 27 SECONDS (21-34) 09/14/16 17:26 - Constitutional Appears: Well - Head Exam Head Exam: ATRAUMATIC, NORMAL INSPECTION, NORMOCEPHALIC - Eye Exam Eye Exam: EOMI, Normal appearance, PERRL Pupil Exam: NORMAL ACCOMODATION, PERRL - ENT Exam ENT Exam: Mucous Membranes Moist, Normal Exam - Neck Exam Neck Exam: Full ROM, Normal Inspection. absent: Lymphadenopathy - Respiratory Exam Respiratory Exam: Decreased Breath Sounds - Cardiovascular Exam Cardiovascular Exam: REGULAR RHYTHM, +S1, +S2 - GI/Abdominal Exam GI & Abdominal Exam: Soft, Diminished Bowel Sounds - Rectal Exam Rectal Exam: Deferred Assessment and Plan (1) Chest injury Status: Acute (2) Endometrial ca Status: Acute (3) Hemothorax Status: Acute (4) Pneumothorax Status: Acute (5) Syncope Status: Acute - Assessment and Plan (Free Text) Plan: Follow-up neurology Follow-up orthopedic Follow-up pulmonology Follow-up ENGINEERING INSPECTOR Continue Norvasc Neurontin Heparin Zosyn Keppra Lidocaine patch Morphine Percocet Protonix Incentive spirometery
--- NOTE | 2016-09-17 20:06 | CP.PCM.PN ---
Subjective - Date & Time of Evaluation Date of Evaluation: 09/17/16 Time of Evaluation: 17:00 - Subjective Subjective: pt seen and examined , Denies shortness of breath but complaining of chest pain on the left side Denies fever or chills Objective - Vital Signs/Intake and Output Vital Signs (last 24 hours): Temp Pulse Resp BP Pulse Ox 98.8 F 87 18 126/70 100 09/17/16 15:24 09/17/16 15:24 09/17/16 15:24 09/17/16 15:24 09/17/16 15:24 - Medications Medications: Current Medications Amlodipine Besylate (Norvasc) 10 mg PO DAILY [facility] Last Admin: 09/17/16 10:19 Dose: 10 mg Gabapentin (Neurontin) 100 mg PO BID [facility] Last Admin: 09/17/16 18:02 Dose: 100 mg Heparin Sodium (Porcine) (Heparin) 5,000 units SC Q12 [facility] Last Admin: 09/17/16 10:19 Dose: 5,000 units Piperacillin Sod/Tazobactam Sod (Zosyn 3.375 Gm Iv Premix) 3.375 gm in 50 mls @ 100 mls/hr IVPB Q8H [facility] Last Admin: 09/17/16 18:03 Dose: 100 mls/hr Levetiracetam (Keppra) 500 mg PO BID [facility] Last Admin: 09/17/16 18:02 Dose: 500 mg Lidocaine (Lidoderm) 1 ea TD DAILY [facility] Last Admin: 09/17/16 10:19 Dose: 1 ea Morphine Sulfate (Morphine) 2 mg IVP Q4 PRN PRN Reason: Pain, severe (8-10) Oxycodone/Acetaminophen (Percocet 5/325 Mg Tab) 1 tab PO Q4H PRN PRN Reason: Pain, moderate (4-7) Stop: 09/19/16 14:49 Last Admin: 09/17/16 10:27 Dose: 1 tab Pantoprazole Sodium (Protonix Ec Tab) 40 mg PO DAILY [facility] Last Admin: 09/17/16 10:18 Dose: 40 mg Rosuvastatin Calcium (Crestor) 10 mg PO HS [facility] Last Admin: 09/16/16 21:52 Dose: 10 mg Silver Sulfadiazine (Silvadene 1% 20 Gm) 1 ea TOP BID [facility] Last Admin: 09/17/16 18:09 Dose: 1 applic - Labs Labs: 09/16/16 07:05 09/16/16 07:05 PT 13.9 SECONDS (9.7-12.2) H 09/14/16 17:26 INR 1.2 09/14/16 17:26 APTT 27 SECONDS (21-34) 09/14/16 17:26 - Constitutional Appears: No Acute Distress - Head Exam Head Exam: ATRAUMATIC, NORMOCEPHALIC - Eye Exam Eye Exam: Normal appearance - ENT Exam ENT Exam: Mucous Membranes Moist - Neck Exam Neck Exam: Normal Inspection - Respiratory Exam Respiratory Exam: Decreased Breath Sounds - Cardiovascular Exam Cardiovascular Exam: REGULAR RHYTHM - GI/Abdominal Exam GI & Abdominal Exam: Soft, Normal Bowel Sounds Assessment and Plan (1) Chest injury Assessment & Plan: Status post fall with multiple rib fractures Repeat CAT scan of the chest Continue present medication Status: Acute (2) Pneumothorax Status: Acute
--- NOTE | 2016-09-18 00:11 | CP.PCM.PN ---
Subjective - Date & Time of Evaluation Date of Evaluation: 09/18/16 Time of Evaluation: 00:08 - Subjective Subjective: SURGERY PROGRESS NOTE FOR DR. ABBASI 71F seen and examined at bedside. Patient resting comfortably. Pain on left ribs does not affect sleeping. Difficultly breathing improving. Objective - Vital Signs/Intake and Output Vital Signs (last 24 hours): Temp Pulse Resp BP Pulse Ox 98.8 F 90 18 126/70 100 09/17/16 15:24 09/17/16 19:49 09/17/16 15:24 09/17/16 15:24 09/17/16 15:24 - Medications Medications: Current Medications Amlodipine Besylate (Norvasc) 10 mg PO DAILY [facility] Last Admin: 09/17/16 10:19 Dose: 10 mg Gabapentin (Neurontin) 100 mg PO BID [facility] Last Admin: 09/17/16 18:02 Dose: 100 mg Heparin Sodium (Porcine) (Heparin) 5,000 units SC Q12 [facility] Last Admin: 09/17/16 22:21 Dose: 5,000 units Piperacillin Sod/Tazobactam Sod (Zosyn 3.375 Gm Iv Premix) 3.375 gm in 50 mls @ 100 mls/hr IVPB Q8H [facility] Last Admin: 09/17/16 18:03 Dose: 100 mls/hr Levetiracetam (Keppra) 500 mg PO BID [facility] Last Admin: 09/17/16 18:02 Dose: 500 mg Lidocaine (Lidoderm) 1 ea TD DAILY [facility] Last Admin: 09/17/16 10:19 Dose: 1 ea Morphine Sulfate (Morphine) 2 mg IVP Q4 PRN PRN Reason: Pain, severe (8-10) Oxycodone/Acetaminophen (Percocet 5/325 Mg Tab) 1 tab PO Q4H PRN PRN Reason: Pain, moderate (4-7) Stop: 09/19/16 14:49 Last Admin: 09/17/16 10:27 Dose: 1 tab Pantoprazole Sodium (Protonix Ec Tab) 40 mg PO DAILY [facility] Last Admin: 09/17/16 10:18 Dose: 40 mg Rosuvastatin Calcium (Crestor) 10 mg PO HS [facility] Last Admin: 09/17/16 22:21 Dose: 10 mg Silver Sulfadiazine (Silvadene 1% 20 Gm) 1 ea TOP BID [facility] Last Admin: 05/20/17 18:09 Dose: 1 applic - Labs Labs: 09/16/16 07:05 09/16/16 07:05 PT 13.9 SECONDS (9.7-12.2) H 09/14/16 17:26 INR 1.2 09/14/16 17:26 APTT 27 SECONDS (21-34) 09/14/16 17:26 - Constitutional Appears: Non-toxic, No Acute Distress - ENT Exam ENT Exam: Mucous Membranes Moist - Respiratory Exam Respiratory Exam: Clear to Ausculation Bilateral, NORMAL BREATHING PATTERN Additional comments: tender to palpation on left mid axillary ribs - Cardiovascular Exam Cardiovascular Exam: REGULAR RHYTHM, +S1, +S2 - GI/Abdominal Exam GI & Abdominal Exam: Soft. absent: Distended, Firm, Guarding, Rigid, Tenderness , Rebound - Extremities Exam Additional comments: burn wounds on hand has dressings in place - Neurological Exam Neurological Exam: Alert - Skin Skin Exam: Dry, Intact, Normal Color, Warm Assessment and Plan - Assessment and Plan (Free Text) Assessment: 71F with hemopneumothorax and left rib fractures CXR from yesterday shows loculated pleural effusion Plan: - pain control as per anesthesia - incentive spirometer - f/u morning CXR - repeat chest CT without contrast on Tuesday 09/19 Further recs discuss with Dr. Shabnam Pacheco, PGY1
[2016-09-18] MEDS: Piperacill/Tazo 3.375gm in Dex 3.375 GM/50 ML BAG IVPB SCH ×3 (01:58→18:20)
--- NOTE | 2016-09-18 08:08 | RAD ---
HISTORY: comparison COMPARISON: 09/17/2016 FINDINGS: LUNGS: Moderate persistent loculated left-sided pleural effusion. Lucency at the left lung base may represent loculated hydropneumothorax versus air underneath the left hemidiaphragm. Repeat study with lateral view may be helpful. Prominent consolidative changes in the left mid to lower lung zone. Diffuse increased interstitial lung markings. Biapical pleural thickening with upper lobe granulomatous changes. PLEURA: As above. CARDIOVASCULAR: Cardiomegaly. OSSEOUS STRUCTURES: Degenerative changes in the spine and shoulders. VISUALIZED UPPER ABDOMEN: Normal. OTHER FINDINGS: None. IMPRESSION: Moderate persistent loculated left-sided pleural effusion. Lucency at the left lung base may represent loculated hydropneumothorax versus air underneath the left hemidiaphragm. Repeat study with lateral view may be helpful. Prominent consolidative changes in the left mid to lower lung zone. Diffuse increased interstitial lung markings. Biapical pleural thickening with upper lobe granulomatous changes.
[2016-09-18] MEDS: Lidocaine 5% Patch TD SCH (10:15)
[2016-09-18] MEDS: Pantoprazole 40 mg EC Tab PO SCH (10:15)
[2016-09-18] MEDS: Silver Sulfadiazine 1% Cream (20 gm) TOP SCH ×2 (10:16→17:37)
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
--- NOTE | 2016-09-18 15:33 | CARD ---
APPROVED REPORT EKG Measurement Heart [id number] <Conclusion> Normal sinus rhythm Normal ECG
--- NOTE | 2016-09-18 17:19 | CP.PCM.PN ---
Subjective - Date & Time of Evaluation Date of Evaluation: 09/18/16 Time of Evaluation: 11:20 - Subjective Subjective: Clinically same Objective - Vital Signs/Intake and Output Vital Signs (last 24 hours): Temp Pulse Resp BP Pulse Ox 98.7 F 85 20 122/62 94 L 09/18/16 16:55 09/18/16 16:55 09/18/16 16:55 09/18/16 16:55 09/18/16 16:55 Intake and Output: 09/18/16 09/18/16 06:59 18:59 Intake Total 160 Balance 160 - Medications Medications: Current Medications Amlodipine Besylate (Norvasc) 10 mg PO DAILY [facility] Last Admin: 09/18/16 10:14 Dose: 10 mg Gabapentin (Neurontin) 100 mg PO BID [facility] Last Admin: 09/18/16 10:14 Dose: 100 mg Heparin Sodium (Porcine) (Heparin) 5,000 units SC Q12 [facility] Last Admin: 09/18/16 10:15 Dose: 5,000 units Piperacillin Sod/Tazobactam Sod (Zosyn 3.375 Gm Iv Premix) 3.375 gm in 50 mls @ 100 mls/hr IVPB Q8H [facility] Last Admin: 09/18/16 10:15 Dose: 100 mls/hr Levetiracetam (Keppra) 500 mg PO BID [facility] Last Admin: 09/18/16 10:15 Dose: 500 mg Lidocaine (Lidoderm) 1 ea TD DAILY [facility] Last Admin: 09/18/16 10:15 Dose: 1 ea Morphine Sulfate (Morphine) 2 mg IVP Q4 PRN PRN Reason: Pain, severe (8-10) Last Admin: 09/18/16 02:00 Dose: 2 mg Oxycodone/Acetaminophen (Percocet 5/325 Mg Tab) 1 tab PO Q4H PRN PRN Reason: Pain, moderate (4-7) Stop: 09/19/16 14:49 Last Admin: 09/17/16 10:27 Dose: 1 tab Pantoprazole Sodium (Protonix Ec Tab) 40 mg PO DAILY [facility] Last Admin: 09/18/16 10:15 Dose: 40 mg Rosuvastatin Calcium (Crestor) 10 mg PO HS [facility] Last Admin: 09/17/16 22:21 Dose: 10 mg Silver Sulfadiazine (Silvadene 1% 20 Gm) 1 ea TOP BID [facility] Last Admin: 09/18/16 10:16 Dose: 1 applic - Labs Labs: 09/16/16 07:05 09/16/16 07:05 PT 13.9 SECONDS (9.7-12.2) H 09/14/16 17:26 INR 1.2 09/14/16 17:26 APTT 27 SECONDS (21-34) 09/14/16 17:26 - Constitutional Appears: Well - Head Exam Head Exam: ATRAUMATIC, NORMAL INSPECTION, NORMOCEPHALIC - Eye Exam Eye Exam: EOMI, Normal appearance, PERRL Pupil Exam: NORMAL ACCOMODATION, PERRL - ENT Exam ENT Exam: Mucous Membranes Moist, Normal Exam - Neck Exam Neck Exam: Full ROM, Normal Inspection. absent: Lymphadenopathy - Cardiovascular Exam Cardiovascular Exam: REGULAR RHYTHM, +S1, +S2. absent: Murmur - GI/Abdominal Exam GI & Abdominal Exam: Soft, Diminished Bowel Sounds - Rectal Exam Rectal Exam: Deferred - Neurological Exam Neurological Exam: Oriented x3 Assessment and Plan (1) Chest injury Status: Acute (2) Endometrial ca Status: Acute (3) Hemothorax Status: Acute (4) Pneumothorax Status: Acute (5) Syncope Status: Acute - Assessment and Plan (Free Text) Plan: Follow-up orthopedic Follow-up pulmonology Continue Norvasc Neurontin Heparin Zosyn Keppra Lidocaine patch Morphine Percocet Protonix Incentive spirometery
[2016-09-19] MEDS: Piperacill/Tazo 3.375gm in Dex 3.375 GM/50 ML BAG IVPB SCH ×2 (01:28→12:16)
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
[2016-09-19] MEDS: Pantoprazole 40 mg EC Tab PO SCH (09:14)
[2016-09-19] MEDS: Lidocaine 5% Patch TD SCH (09:15)
--- NOTE | 2016-09-19 09:38 | RAD ---
HISTORY: comparison COMPARISON: 09/18/2016 FINDINGS: LUNGS: Opacity along left lateral chest wall, slightly decreased in extent, likely loculated pleural fluid. Opacity at left base, infiltrate versus atelectasis. . No right-sided pleural effusion. No pneumothorax. PLEURA: As above CARDIOVASCULAR: Normal. OSSEOUS STRUCTURES: No significant abnormalities. VISUALIZED UPPER ABDOMEN: Normal. OTHER FINDINGS: None. IMPRESSION: Slight decrease in extent of loculated pleural effusion along left lateral chest wall. Left basilar infiltrate versus atelectasis.
[2016-09-19] MEDS: Silver Sulfadiazine 1% Cream (20 gm) TOP SCH (11:03)
[2016-09-19] MEDS ORDERED: Gadodiamide 287 MG/ML VIAL (15ML) IV ONE (11:33)
--- NOTE | 2016-09-19 11:53 | CP.PCM.PN ---
Subjective - Date & Time of Evaluation Date of Evaluation: 09/19/16 Time of Evaluation: 08:00 - Subjective Subjective: patient seen and examined. Lying comfortably in no acute distres but complaining of left-sided chest pa Denies cough, denies fever chills Objective - Vital Signs/Intake and Output Vital Signs (last 24 hours): Temp Pulse Resp BP Pulse Ox 98.4 F 71 18 128/73 95 09/19/16 07:20 09/19/16 07:20 09/19/16 07:20 09/19/16 07:20 09/19/16 07:20 - Medications Medications: Current Medications Amlodipine Besylate (Norvasc) 10 mg PO DAILY [facility] Last Admin: 09/19/16 09:15 Dose: 10 mg Gabapentin (Neurontin) 100 mg PO BID [facility] Last Admin: 09/19/16 09:17 Dose: 100 mg Heparin Sodium (Porcine) (Heparin) 5,000 units SC Q12 [facility] Last Admin: 09/19/16 10:59 Dose: 5,000 units Piperacillin Sod/Tazobactam Sod (Zosyn 3.375 Gm Iv Premix) 3.375 gm in 50 mls @ 100 mls/hr IVPB Q8H [facility] Last Admin: 09/19/16 01:28 Dose: 100 mls/hr Levetiracetam (Keppra) 500 mg PO BID [facility] Last Admin: 09/19/16 09:15 Dose: 500 mg Lidocaine (Lidoderm) 1 ea TD DAILY [facility] Last Admin: 09/19/16 09:15 Dose: 1 ea Morphine Sulfate (Morphine) 2 mg IVP Q4 PRN PRN Reason: Pain, severe (8-10) Last Admin: 09/19/16 09:16 Dose: 2 mg Oxycodone/Acetaminophen (Percocet 5/325 Mg Tab) 1 tab PO Q4H PRN PRN Reason: Pain, moderate (4-7) Stop: 09/19/16 14:49 Last Admin: 09/17/16 10:27 Dose: 1 tab Pantoprazole Sodium (Protonix Ec Tab) 40 mg PO DAILY [facility] Last Admin: 09/19/16 09:14 Dose: 40 mg Rosuvastatin Calcium (Crestor) 10 mg PO HS [facility] Last Admin: 09/18/16 22:46 Dose: 10 mg Silver Sulfadiazine (Silvadene 1% 20 Gm) 1 ea TOP BID [facility] Last Admin: 09/19/16 11:03 Dose: Not Given - Labs Labs: 09/16/16 07:05 09/16/16 07:05 PT 13.9 SECONDS (9.7-12.2) H 09/14/16 17:26 INR 1.2 09/14/16 17:26 APTT 27 SECONDS (21-34) 09/14/16 17:26 - Head Exam Head Exam: ATRAUMATIC, NORMOCEPHALIC - Eye Exam Eye Exam: Normal appearance - ENT Exam ENT Exam: Mucous Membranes Moist - Neck Exam Neck Exam: Normal Inspection - Respiratory Exam Respiratory Exam: Decreased Breath Sounds - Cardiovascular Exam Cardiovascular Exam: REGULAR RHYTHM - GI/Abdominal Exam GI & Abdominal Exam: Soft, Normal Bowel Sounds Assessment and Plan (1) Chest injury Assessment & Plan: CAT scan of the chest consistent and small left hemothorax Patient clinically much better Continue pain medication Status: Acute (2) Pneumothorax Status: Acute
--- NOTE | 2016-09-19 14:36 | CP.PCM.PN ---
Subjective - Date & Time of Evaluation Date of Evaluation: 09/19/16 Time of Evaluation: 14:34 - Subjective Subjective: pt s/e. clinically stable. ct of chest: no significant changes from adm ct. a/p: D/c home. f/u with cxr and ct. as opd. pt. Objective - Vital Signs/Intake and Output Vital Signs (last 24 hours): Temp Pulse Resp BP Pulse Ox 98.4 F 71 18 128/73 95 09/19/16 07:20 09/19/16 07:20 09/19/16 07:20 09/19/16 07:20 09/19/16 07:20 - Medications Medications: Current Medications Amlodipine Besylate (Norvasc) 10 mg PO DAILY [facility] Last Admin: 09/19/16 09:15 Dose: 10 mg Gabapentin (Neurontin) 100 mg PO BID [facility] Last Admin: 09/19/16 09:17 Dose: 100 mg Heparin Sodium (Porcine) (Heparin) 5,000 units SC Q12 [facility] Last Admin: 09/19/16 10:59 Dose: 5,000 units Piperacillin Sod/Tazobactam Sod (Zosyn 3.375 Gm Iv Premix) 3.375 gm in 50 mls @ 100 mls/hr IVPB Q8H [facility] Last Admin: 09/19/16 12:16 Dose: 100 mls/hr Levetiracetam (Keppra) 500 mg PO BID [facility] Last Admin: 09/19/16 09:15 Dose: 500 mg Lidocaine (Lidoderm) 1 ea TD DAILY [facility] Last Admin: 09/19/16 09:15 Dose: 1 ea Morphine Sulfate (Morphine) 2 mg IVP Q4 PRN PRN Reason: Pain, severe (8-10) Last Admin: 09/19/16 09:16 Dose: 2 mg Oxycodone/Acetaminophen (Percocet 5/325 Mg Tab) 1 tab PO Q4H PRN PRN Reason: Pain, moderate (4-7) Stop: 09/19/16 14:49 Last Admin: 09/17/16 10:27 Dose: 1 tab Pantoprazole Sodium (Protonix Ec Tab) 40 mg PO DAILY [facility] Last Admin: 09/19/16 09:14 Dose: 40 mg Rosuvastatin Calcium (Crestor) 10 mg PO HS [facility] Last Admin: 09/18/16 22:46 Dose: 10 mg Silver Sulfadiazine (Silvadene 1% 20 Gm) 1 ea TOP BID [facility] Last Admin: 09/19/16 11:03 Dose: Not Given - Labs Labs: 09/16/16 07:05 09/16/16 07:05 PT 13.9 SECONDS (9.7-12.2) H 09/14/16 17:26 INR 1.2 09/14/16 17:26 APTT 27 SECONDS (21-34) 09/14/16 17:26
--- NOTE | 2016-09-19 14:45 | CT ---
PROCEDURE: CT Chest without contrast HISTORY: change in x-ray COMPARISON: Comparison is made to the previous study dated 09/14/2016 TECHNIQUE: Contiguous axial images were obtained through the chest without intravenous contrast enhancement. Sagittal and coronal reconstructions were performed. Radiation dose (DLP): 184.36 mGy-cm. This CT exam was performed using one or more of the following dose reduction techniques: Automated exposure control, adjustment of the mA and/or kV according to patient size, and/or use of iterative reconstruction technique. FINDINGS: LUNGS: Partial atelectasis and linear opacities are again seen at the mid and lower portion of the left lung. MEDIASTINUM: Unremarkable thoracic aorta. No aneurysm. Normal sized heart. Main pulmonary artery unremarkable. No vascular congestion. No lymphadenopathy. Large hiatus hernia is seen. PLEURA: There is small left pleural effusion. No evidence of pneumothorax. BONES: Multiple left acute displaced ribs fractures are again seen. UPPER ABDOMEN: Grossly unremarkable. OTHER FINDINGS: None. IMPRESSION: Small left pleural effusion likely represent hemothorax. Multiple left rib fractures. Linear opacities and partial atelectasis of the mid and lower left lung again seen. No significant interval change. Large hiatus hernia.
--- NOTE | 2016-09-19 15:24 | MRI ---
PROCEDURE: MRI BRAIN WITH AND WITHOUT CONTRAST HISTORY: mass? COMPARISON: Comparison is made to the previous CT dated 09/14/2016 TECHNIQUE: Multiplanar, multisequence MR images of the brain were obtained with and without intravenous contrast enhancement. FINDINGS: HEMORRHAGE: None DWI: No evidence of an acute or early subacute infarction. BRAIN PARENCHYMA: No evidence of mass lesion or mass effect. . Mild white matter changes likely due to chronic microvascular ischemic disease. [id number] atrophy. Dilated extra-axial space more prominent at the middle fossa right more than left of uncertain etiology. There is mild hyperintense FLAIR signal seen around this cystic structure in the temporal lobes/middle fossa. ENHANCEMENT: No abnormal intracranial enhancement. VENTRICLES: Unremarkable. No hydrocephalus. CRANIUM: Unremarkable. ORBITS: Grossly unremarkable. PARANASAL SINUSES/MASTOIDS: Clear VASCULAR SYSTEM: Skull base flow voids intact. OTHER FINDINGS: None . IMPRESSION: No evidence of acute pathology in the brain. No evidence of mass lesion or abnormal enhancement in the brain. Moderate atrophy. Dilated extra-axial space at the temporal/middle fossa bilaterally right more than left of uncertain etiology the differential diagnosis includes atrophy versus less likely arachnoid cyst.
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
[2016-09-19 16:30] VITALS: BP 121/73; PULSE 85; RESP 20; TEMP 97.2; O2SAT 97
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
--- NOTE | 2016-09-26 21:05 | EEG ---
DATE: 09/19/2016 This is a 16-channel electroencephalogram of awake and drowsy adult. During the study, photic stimulation was performed. Hyperventilation was not performed. The resting electroencephalogram consists of 40-60 micro volts moderate voltage alpha activity seen at parietal and occipital leads. Anteriorly fast activity superimposed with 2-3 Hz delta activity seen at frontal and central leads. Intermittent high amplitude 2-3 Hz delta activity seen, which is consistent with early drowsiness. The photic stimulation did not evoke driving response noted at 2-20 Hz. IMPRESSION: This is a normal electroencephalogram of awake and drowsy adult. During the study, neither electroencephalographic paroxysmal activities nor focal slowing noted. Lance Roca MD cc: [id number] TT: 09/26/2016 21:05:00 Confirmation # [id number] Dictation # [id number]
== END 2016-09-19 17:00 | disposition home or self-care (01) | DRG 199 ==
LOC: C.ER 16:31 → C.6T 19:47
PROVIDERS: ADMIT Internal Medicine Nephrology; ATTEND Internal Medicine Nephrology
DX: S27.2XXA Traumatic hemopneumothorax, initial encounter (principal); T31.22 Burns involving 20-29% of body surface with 20-29% third degree burns; G93.89 Other specified disorders of brain; S22.42XA Multiple fractures of ribs, left side, initial encounter for closed fracture; T23.321A Burn of third degree of single right finger (nail) except thumb, initial encounter; N39.0 Urinary tract infection, site not specified; W01.0XXA Fall on same level from slipping, tripping and stumbling without subsequent striking against object, initial encounter; W19.XXXA Unspecified fall, initial encounter; Y92.009 Unspecified place in unspecified non-institutional (private) residence as the place of occurrence of the external cause; T23.001A Burn of unspecified degree of right hand, unspecified site, initial encounter; I10 Essential (primary) hypertension; E78.5 Hyperlipidemia, unspecified; Z85.42 Personal history of malignant neoplasm of other parts of uterus; X12.XXXA Contact with other hot fluids, initial encounter; Y93.G3 Activity, cooking and baking; Y92.090 Kitchen in other non-institutional residence as the place of occurrence of the external cause